=== PATIENT | female | born 2005 | race Two or more races ===

== ENCOUNTER 2025-08-17 17:06 | Emergency (ER) | payer BC, MEDICAID ==
[~2025-08-17] VITALS: Ht 162.6 cm; Wt 72.6 kg
[2025-08-17 17:55] VITALS: TEMP 99.1
[2025-08-17] MEDS ORDERED: LET SOLN TOPICAL 8 ML UDC TP ONE (20:14)
[2025-08-17] MEDS ORDERED: LIDOCAINE 1%-EPI 1:100,000 20 ML VIAL ONE (20:14)
[2025-08-17] MEDS: LET SOLN TOPICAL 8 ML UDC TP ONE (20:18)
[2025-08-17] MEDS: LIDOCAINE 1%-EPI 1:100,000 50 ML VIAL IJ ONE (20:41)
[2025-08-17] MEDS ORDERED: CLIN300C12 PO (20:50)
[2025-08-17] MEDS ORDERED: CEPHALEXIN MONOHYDRATE 500 MG CAPSULE PO ONE (21:00)
[2025-08-17] MEDS ORDERED: CLINDAMYCIN HCL 150 MG CAPSULE ONE (21:03)
[2025-08-17] MEDS: CLINDAMYCIN HCL 150 MG CAPSULE PO ONE (21:07)
[2025-08-17 21:14] VITALS: BP 125/85; O2SAT 98
== END 2025-08-17 21:00 | disposition home or self-care (01) ==
LOC: ER 17:06
DX: K61.0 Anal abscess (principal)
CPT/HCPCS: 46050; 99284; J3490 ×2; A6407